=== PATIENT | male | born 1945 | race Asian ===

== ENCOUNTER 2017-10-04 14:51 | Emergency (ER) | payer OTHER ==
[~2017-10-04 14:51] MED LIST: LIPI10 PO
[2017-10-04 14:53] VITALS: BP 162/80
== END 2017-10-04 17:22 | disposition home or self-care (01) ==
LOC: ED 14:51
DX: M54.5 Low back pain (principal); E78.00 Pure hypercholesterolemia, unspecified

== ENCOUNTER 2017-10-12 22:48 | Emergency (ER) | payer OTHER ==
[~2017-10-12] VITALS: Ht 180.3 cm; Wt 77.1 kg
[2017-10-12 23:00] VITALS: Ht 180.3 cm; Wt 77.1 kg
[2017-10-12 23:41] LABS: BASOPHIL % 0.5 % (0-2); PLATELET COUNT 141 x10^3mcL (130-400); RED CELL DISTRIBUTION WIDTH 13.6 % (11.5-14.5)
[2017-10-13] LABS: CALCIUM 8.9 mg/dL (8.5-10.1); CARBON DIOXIDE 26.4 mmol/L (21-32); CHLORIDE SERUM 104 mmol/L (98-107); CREATININE SERUM 1.2 mg/dL (0.7-1.3); GLUCOSE SERUM 152 mg/dL (74-106); SODIUM SERUM 139 mmol/L (136-145)
[2017-10-13 00:05] LABS: ALBUMIN 3.4 g/dL (3.4-5.0); ALKALINE PHOSPHATASE 52 U/L (46-116); ALT/SGPT 38 U/L (16-63); AST/SGOT 31 U/L (15-37); BILIRUBIN TOTAL 0.96 mg/dL (0.20-1.00)
[2017-10-13 01:14] VITALS: BP 130/82
== END 2017-10-13 01:14 | disposition home or self-care (01) ==
LOC: ED 22:48
PROVIDERS: Emergency Medicine
DX: I10 Essential (primary) hypertension (principal); B02.9 Zoster without complications
CPT/HCPCS: 36415; 83880